=== PATIENT | female | born 1975 | race African-American/Black ===

== ENCOUNTER 2022-04-14 14:35 | Outpatient (CLI) | payer OTHER, SELFPAY ==
[2022-04-14 15:24] LABS: Albumin* 4.2 g/dL (3.3-5.0); Chloride* 108 mmol/L (96-114); Potassium* 4.2 mmol/L (3.6-5.1); Sodium* 138 mmol/L (135-149)
[2022-04-14 15:26] LABS: Carbon Dioxide* 24 mmol/L (20-32); Cholesterol* 146 mg/dL (90-199); Creatinine* 0.7 mg/dL (0.5-1.5); Estimated Glomerular Filt Rate 107 ml/min
[2022-04-14 15:27] LABS: Alanine Aminotransferase* 11 U/L (4-35); Alkaline Phosphatase* 72 U/L (40-150); Aspartate Amino Transferase* 16 U/L (12-35); Bilirubin Total* 0.8 mg/dL (0.1-1.5); Blood Urea Nitrogen* 9 mg/dL (5-24); Calcium* 9.2 mg/dL (8.4-10.6); Glucose* 91 mg/dL (60-115); Total Protein* 6.7 g/dL (6.0-8.3); Triglycerides* 84 mg/dL (40-149)
[2022-04-14 15:28] LABS: HDL Cholesterol* 62 mg/dL (>=50); LDL Cholesterol Calculated 67 mg/dL (<100)
== END 2022-04-14 14:36 | disposition home or self-care (01) ==
PROVIDERS: PCP Family Medicine; Visit Provider Family Medicine
DX: Z13.6 Encounter for screening for cardiovascular disorders (principal)
CPT/HCPCS: 80053; 80061

== ENCOUNTER 2022-05-16 07:30 | Outpatient (CLI) | payer OTHER, SELFPAY ==
--- OUTSIDE RECORDS SUMMARY | 2022-05-16 07:33 | XMS_ITS | Encounter Summary ---
:1975 Author Organization [facility] Address [address] [place] [address] Care Team Providers Name Role Phone None, Pcp Primary Care Provider Unavailable Encounter Details Date Type Department Care Team Description 12/18/2021 Travel Social History Tobacco Use Types Packs/Day Years Used Date Former Smoker Cigarettes 1 8 Quit: 12/14/19 Smokeless Tobacco: Former User Sex Assigned at Date Recorded Not on file COVID-19 Exposure Response Date Recorded In the last 10 days, have you been in contact with Yes 12/18/2021 11:21 AM CDT someone who was confirmed or suspected to have Coronavirus/COVID-19? documented as of this encounter Plan of Treatment Not on filedocumented as of this encounter Visit Diagnoses Not on filedocumented in this encounter Additional Health Concerns Infection Onset Date Last Indicated Resolved Time COVID-19 Rule Out 12/17/2021 12/17/2021 12/18/2021 6:5 7 AM CDT COVID-19 Rule Out 12/18/2021 12/18/2021 12/18/2021 11: 57 AM CDT COVID-19 Confirmed 12/18/2021 12/18/2021 03/18/2022 8: 17 PM CDT Influenza 12/18/2021 12/18/2021 12/28/2021 8:17 PM CDT documented as of this encounter Care Teams Director Veterinary Relationship Specialty Start Date End Date None, Pcp PCP - General [employer] 12/17/21 [address] [place] [id number] documented as of this encounter
--- OUTSIDE RECORDS SUMMARY | 2022-05-16 07:34 | XMS_ITS | Encounter Summary ---
:1975 Author Organization [facility] Address [address] [place] [address] Care Team Providers Name Role Phone None, Pcp Primary Care Provider Unavailable Reason for Visit Reason Comments Headache Shortness of Breath Encounter Details Date Type Department Care Team Description 12/18/2021 Emergency [facility] Edvin Ferrer (Primary Dx); Emergency Room MD Melisa COVID; [address] [place] [address] Breast cyst, right; [place] [address] [place] Cellulitis of right breast [phone] [id number] (Wo rk) Social History Tobacco Use Types Packs/Day Years Used Date Former Smoker Cigarettes 1 8 Quit: 12/14/19 22 Smokeless Tobacco: Former User Sex Assigned at Date Recorded Not on file COVID-19 Exposure Response Date Recorded In the last 10 days, have you been in contact with Yes 12/18/2021 11:21 AM CDT someone who was confirmed or suspected to have Coronavirus/COVID-19? documented as of this encounter Last Filed Vital Signs Vital Sign Reading Time Taken Comments Blood Pressure 140/88 12/18/2021 1:57 PM CDT Pulse 58 12/18/2021 1:57 PM CDT Temperature 36.8 ??C (98.2 ??F) 12/18/2021 1:57 PM CDT Respiratory Rate 16 12/18/2021 1:57 PM CDT Oxygen Saturation 100% 12/18/2021 1:57 PM CDT Inhaled Oxygen Concentration - - Weight 88.4 kg (194 lb 14.2 oz) 12/18/2021 11:26 AM CDT Height 176 cm (5' 9.29) 12/18/2021 11:26 AM CDT Body Mass Index 28.54 12/18/2021 11:26 AM CDT documented in this encounter Discharge Instructions Discharge InstructionsEdvin Ferrer MD - 12/18/2021 2:11 PM CDT You were evaluated in the emergency room for cough, runny nose, and upper respiratory symptoms. You do have COVID and influenza. You do have a infected breast cyst which was removed. Please take the antibiotics as prescribed. Stay quarantined at home. Any worsening symptoms, please return to emergencyroom. AttachmentsThe following attachments cannot be sent through Care Everywhere. Breast Cyst (Fijian)Mastitis [id number] (Fijian)10 Things You Can Do to Manage Your COVID-19 Symptoms at Home - [facility] (01/25/2021) (Fijian)Symptoms of COVID-19 - [facility] (09/03/2020) (Fijian)Influenza Adult Nque-me-Fmlr (Fijian) documented in this encounter Medications at Time of Discharge Medication Sig Dispensed Refills Start Date End Date cephalexin (Keflex) 500 Take 1 capsule (500 40 capsule 0 02/202212/28/2021 MG capsuleIndications: mg total) by mouth 4 Breast cyst, right (four) times a day for 10 days documented as of this encounter ED Notes Mac Monterroso RN - 12/18/2021 11:30 AM CDT Pt presents to the ED complaining of head pain, SOB, cough, sore throat, and chest tightness. These symptoms have been present since Thursday and have been progressively getting worse. She took a home COVID test yesterday which was positive. Edvin Ferrer MD - 12/18/2021 11:20 AM CDTAssociated Order(s): Incision and Drainage HPI Chief Complaint Patient presents with ??? Headache ??? Shortness of Breath 46-year-old female presents to the emergency room with a history of cough, headache, runny nose and chest congestion. She states that she has been having chest discomfort whenever she tries to take a deep breath or cough. She was having the symptoms for last 4 days. She did get tested herself yesterday and she was positive for COVID. Her son also has the same symptoms and one of her son's did get tested for COVID and he was positive to. She comes to the ER because she has not been able to eat or drink much since Thursday. No history of any asthma. No history of diabetes. The patient has not had anyother significant complaints. History provided by: Caregiver History limited by: Acuity of condition Headache Headache pattern: Some headache always there, and the pain level varies Duration: Less than 2 weeks Frequency: Headaches came more frequently then constant pain started Initial event: None Recent event: Illness and infection Providers seen: None Lifetime total: 2 to 4 Longest time without a headache: Headache has always been present Number of ER visits for headache: 4 Did ER treatment alleviate headache symptoms?: Yes Number of hospitalizations for headaches: 0 Time of day symptoms are worse: No specific time of day, upon waking up and evening Do headaches wake patient from sleep?: No Days of the week symptoms are worse: No specific day of the week Season symptoms are worse: No particular season Quality: Unable to describe Laterality: Unable to describe Location: Unable to describe Pain severity: 6 Escalation timing: Wakes up with severe pain Aggravating factors: Activity, changing position and concentrating Duration of aggravated symptoms: Just during a sneeze/cough/laugh Allodynia triggers: None Patient History Patient History No Known Allergies No past medical history on file. No past surgical history on file. No family history on file. Social History Tobacco Use ??? Smoking status: Former Smoker Packs/day: 1.00 Years: 8.00 Pack years: 8.00 Types: Cigarettes Quit date: 12/13/2021 Years since quittin.0 ??? Smokeless tobacco: Former User Substance Use Topics ??? Alcohol use: Not on file ??? Drug use: Never Review of Systems Review of Systems Constitutional: Negative for chills and fever. HENT: Negative for ear pain and sore throat. Eyes: Negative for pain and visual disturbance. Respiratory: Positive for cough and shortness of breath. Cardiovascular: Negative for chest pain and palpitations. Gastrointestinal: Negative for abdominal pain and vomiting. Genitourinary: Negative for dysuria and hematuria. Musculoskeletal: Negative for arthralgias and back pain. Skin: Negative for color change and rash. Neurological: Positive for headaches. All other systems reviewed and are negative. Physical Exam ED Triage Vitals [12/18/21 1126] Temp Heart Rate Resp BP (!) 35.8 ??C (96.4 ??F) 76 22 128/76 SpO2 Temp Source Heart Rate Source Patient Position 98 % Temporal Monitor Sitting BP Location FiO2 (%) Weight Right arm -- 88.4 kg (194 lb 14.2 oz) Body mass index is 28.54 kg/m??. Lyons body weight: 66.9 kg (147 lb 6.7 oz) Physical Exam Constitutional: General: She is not in acute distress. Appearance: She is well-developed. She is not diaphoretic. HENT: Head: Normocephalic and atraumatic. Nose: Nose normal. Eyes: General: No scleral icterus. Pupils: Pupils are equal, round, and reactive to light. Neck: Thyroid: No thyromegaly. Vascular: No JVD. Cardiovascular: Rate and Rhythm: Normal rate and regular rhythm. Heart sounds: Normal heart sounds. No murmur heard. No friction rub. No gallop. Pulmonary: Effort: Pulmonary effort is normal. No respiratory distress. Breath sounds: Normal breath sounds. No wheezing or rales. Chest: Chest wall: No tenderness. Abdominal: General: Bowel sounds are normal. There is no distension. Palpations: Abdomen is soft. There is no mass. Tenderness: There is no abdominal tenderness. There is no rebound. Musculoskeletal: General: Normal range of motion. Cervical back: Normal range of motion and neck supple. Lymphadenopathy: Cervical: No cervical adenopathy. Skin: General: Skin is warm and dry. Neurological: Mental Status: She is alert and oriented to person, place, and time. Deep Tendon Reflexes: Reflexes normal. Psychiatric: Mood and Affect: Mood normal. [place] Coma Scale Score: 15 Incision and Drainage Performed by: Edvin Ferrer MD Authorized by: Edvin Ferrer MD Consent: Consent obtained: Verbal Consent given by: Patient Risks, benefits, and alternatives were discussed: yes Risks discussed: Bleeding, incomplete drainage, pain, damage to other organs and infection Alternatives discussed: No treatment, delayed treatment and alternative treatment [place] protocol: Procedure explained and questions answered to patient or proxy's satisfaction: yes Relevant documents present and verified: yes Site/side marked: yes Immediately prior to procedure, a time out was called: yes Patient identity confirmed: Verbally with patient, arm band, provided demographic data and hospital-assigned identification number Location: Type: Cyst Size: 5x5 Location: Trunk Trunk location: R breast Pre-procedure details: Skin preparation: Chlorhexidine Anesthesia: Anesthesia method: Local infiltration Local anesthetic: Bupivacaine 0.5% w/o epi Procedure type: Complexity: Simple Procedure details: Ultrasound guidance: yes Needle aspiration: yes Needle size: 18 G Wound management: Irrigated with saline Drainage: Purulent Drainage amount: Moderate Wound treatment: Wound left open Packing materials: None Post-procedure details: Procedure completion: Tolerated No results found. Labs Reviewed CBC WITH AUTO DIFFERENTIAL - Abnormal Result Value WBC 6.7 RBC 4.29 Hemoglobin 13.1 Hematocrit 39.9 Platelets 223 MCV 93.0 MCH 30.5 MCHC 32.8 RDW 12.5 NRBC %, Automated 0 NRBC Absolute, Autmated 0.00 Neutrophils 59.0 Absolute Neutrophils 4.0 Lymphocytes % 22.0 Absolute Lymphocytes 1.5 Monocytes % 16.0 Monocytes Absolute 1.1 (*) Eosinophils 3.0 Absolute Eosinophils 0.2 Basophils 0.0 Absolute Basophils 0.0 Immature Leukocytes 0.0 Immature Leukocytes Absolute 0.00 COMPREHENSIVE METABOLIC PANEL - Abnormal Total Protein 7.5 Albumin, Serum 4.2 Total Bilirubin <0.7 AST 16 Alkaline Phosphatase 61 ALT (SGPT) 11 Sodium 137 Potassium 3.8 Chloride 106 CO2 21 (*) BUN 7 Creatinine 0.7 Glucose 102 (*) Calcium, Total,S 8.9 Fasting? No C-REACTIVE PROTEIN - Abnormal CRP 27.9 (*) FLU(A/B), DACOSTA ID NOW, PCR - Abnormal Flu Source Nasal Influenza A, PCR NEGATIVE Influenza B, PCR POSITIVE (*) Flu Interp see below COVID-19, DACOSTA ID NOW, PCR - Abnormal Covid Source Nasal Covid-19, ID Now PCR POSITIVE (*) WOUND CULTURE LACTATE, PLASMA Lactate 0.8 MORPHOLOGY Slide Review PERFORMED RBC Morphology See below PLT Morphology ADEQUATE Anisocytosis 1+ GLOMERULAR FILTRATION RATE GFR >60 GFR >60 REFLEXED MANUAL DIFF Manual Differential PERFORMED Total Counted 100 ED Course & MDM MDM Number of Diagnoses or Management Options Breast cyst, right Cellulitis of right breast COVID Influenza B Diagnosis management comments: 46-year-old female presents to the emergency room with a history of cough, headache, runny nose and chest congestion. She states that she has been having chest discomfortwhenever she tries to take a deep breath or cough. She was having the symptoms for last 4 days. She did get tested herself yesterday and she was positive for COVID. Her son also has the same symptoms and one of her son's did get tested for COVID and he was positive to. She comes to the ER because she has not been able to eat or drink much since Thursday. No history of any asthma. No history of diabetes. The patient has not had any other significant complaints. In the emergency room the patient did have a blood work, chest x-ray and nasal swab for influenza and COVID which were positive. The patient also mentioned that she has a painful cyst on the right side. He drained the cyst which appears little purulent. The surrounding skin appears to be mildly red. The nipple was not everted. This was sent for culture and sensitivity. Patient was given a dose of Keflex and she did get a prescription for Keflex. She states that she gets these breast cyst which can often get infected and she was discharged home in stable condition with recommendation that she follow-up with primary care physician. Amount and/or Complexity of Data Reviewed Clinical lab tests: ordered and reviewed Tests in the radiology section of CPT??: ordered and reviewed Obtain history from someone other than the patient: yes Review and summarize past medical records: yes Discuss the patient with other providers: yes Independent visualization of images, tracings, or specimens: yes Risk of Complications, Morbidity, and/or Mortality Presenting problems: high Diagnostic procedures: moderate Management options: high Patient Progress Patient progress: stable Follow Up No follow-up provider specified. Patient's Medications New Prescriptions CEPHALEXIN (KEFLEX) 500 MG CAPSULE Take 1 capsule (500 mg total) by mouth 4 (four) times a day for 10 days Previous Medications No medications on file Modified Medications No medications on file Discontinued Medications No medications on file Discharge Instructions Attached Instructions BREAST CYST (CU[place]) [[id number]] MASTITIS [id number] (CUBAN) [[id number]] 10 THINGS YOU CAN DO TO MANAGE YOUR COVID-19 SYMPTOMS AT HOME - [facility] (01/25/2021) (CU[place]AN) [[id number]] SYMPTOMS OF COVID-19 - [facility] (09/03/2020) (CU[place]) [[id number]] INFLUENZA ADULT JNTH-LY-MUUA (CUBAN) [[id number]] Discharge Instructions You were evaluated in the emergency room for cough, runny nose, and upper respiratory symptoms. You do have COVID and influenza. You do have a infected breast cyst which was removed. Please take the antibiotics as prescribed. Stay quarantined at home. Any worsening symptoms, please return to emergencyroom. ED COURSE and CLINICAL IMPRESSION ED Course as of 12/18/21 1414 ThuDec 18, 2021 1338 Influenza B, PCR(!): POSITIVE [GK] 1338 Covid-19, ID Now PCR(!): POSITIVE [GK] 1338 CRP(!): 27.9 [] 1407 Patient also mentioned that she has cystic swelling in the right breast for the last 2 weeks and it has been very painful. When I ultrasounded the area it appears like a breast abscess. This was drained with an 18-gauge needle. Sent for culture. [GK] ED Course User Index [] Edvin Ferrer MD Clinical Impressions as of 12/18/21 1414 Influenza B COVID Breast cyst, right Cellulitis of right breast Disposition: Discharge Edvin Ferrer MD 12/18/21 1414 documented in this encounter Plan of Treatment Not on filedocumented as of this encounter Procedures Procedure Name Priority Date/Time Associated Comments Diagnosis WOUND CULTURE STAT 12/18/2021 2:09 PM Results for this CDT procedure are i n the results section. XR CHEST 1 VIEW STAT 12/18/2021 1:33 PM Result s for this CDT procedure are i n the results section. REFLEXED MANUAL DIFF STAT 12/18/2021 12:00 Res ults for this PM CDT procedure are i n the results section. MORPHOLOGY STAT 12/18/2021 12:00 Results for this PM CDT procedure are i n the results section. GLOMERULAR FILTRATION STAT 12/18/2021 12:00 Re sults for this RATE PM CDT procedure are i n the results section. CBC WITH AUTO STAT 12/18/2021 12:00 Results fo r this DIFFERENTIAL PM CDT procedure are i n the results section. C-REACTIVE PROTEIN STAT 12/18/2021 12:00 Resul ts for this PM CDT procedure are i n the results section. LACTATE, PLASMA STAT 12/18/2021 12:00 Results for this PM CDT procedure are i n the results section. COMPREHENSIVE STAT 12/18/2021 12:00 Results fo r this METABOLIC PANEL PM CDT procedure ar e in the results section. FLU(A/B), DACOSTA ID STAT 12/18/2021 11:41 Resu lts for this NOW, PCR AM CDT procedure are i n the results section. COVID-19, DACOSTA ID STAT 12/18/2021 11:41 Resu lts for this NOW, PCR AM CDT procedure are i n the results section. HC INCISION DRAIN Routine 12/18/2021 11:20 Result s for this ABSCESS SIMPLE AM CDT procedure are in the results section. CA DRAIN SKIN ABSCESS Routine 12/18/2021 11:20 Re sults for this SIMPLE AM CDT procedure are i n the results section. documented in this encounter Results (ABNORMAL) Wound culture (12/18/2021 2:09 PM CDT) [facility] gist Method Time Signature Gram Stain Rare WBC'S. No 12/19/2021 [place] organisms seen. 1:07 PM CDT [facility] Wound Culture Escherichia coli 12/21/2021 [place] Growth in thio broth only 6:43 AM CDT [facility] Specimen Anatomical Collection Method Collection Time Receive d Time (Source) Location / / Volume Laterality Wound (Breast, 12/18/2021 2:09 PM 022 2:11 Right) CDT PM CDT Comment: Wound Narrative [facility] - 12/11 6:50 AM CDT Patient does not have an Amoxicillin or PCN allergy Organism Antibiotic Method Susceptibility Escherichia coli Ampicillin >16 mcg/mL: Res istant Escherichia coli Ampicillin/Sulbactam 16/8 mcg/m L: Intermediate Escherichia coli Cefazolin <=2 mcg/mL: Tonia ceptible Escherichia coli Ciprofloxacin <=0.25 mcg/mL: Susceptible Escherichia coli Gentamicin <=4 mcg/mL: Tonia ceptible Escherichia coli Levofloxacin <=0.5 mcg/mL: S usceptible Escherichia coli Piperacillin/Tazobactam <=16 mc g/mL: Susceptible Escherichia coli Trimeth/Sulfa <=2/38 mcg/mL: Susceptible Edvin Ferrer MD LAB MICROBIOLOGY - GENERAL O RDERABLES Performing Organization Address City/State/ZIP Code Phon e Number [facility] [address] [place] [address] X-ray chest 1 view portable (12/18/2021 1:33 PM CDT) Anatomical Region Laterality Modality Body Radiographic Imaging Specimen (Source) Anatomical Collection Method Collection Time Re ceived Time Location / / Volume Laterality 12/18/2021 1:33 PM CDT Impressions 12/18/2021 1:38 PM CDT IMPRESSION: No acute cardiopulmonary abnormality. Narrative 12/18/2021 1:38 PM CDT INDICATION: sob. cough COMPARISON: None FINDINGS: Heart size is normal. Lungs are clear. N o pneumothorax. No pleural effusion. ??No osseous abnormality. Procedure Note Danny Lindquist MD - 12/18/2021 INDICATION: sob. cough COMPARISON: None FINDINGS: Heart size is normal. Lungs are clear. N o pneumothorax. No pleural effusion. No osseous abnormality. IMPRESSION: No acute cardiopulmonary abnormality. Edvin Ferrer MD IMG XR PROCEDURES Glomerular filtration rate (GFR) (12/18/2021 12:00 PM CDT) athologist Signature GFR >60 12/18/2021 [facility] 12:29 PM CDT [facility] >60 12/18/2021 [facility] Bahraini GFR 12:29 PM CDT [facility] Comment: GFR calculated from serum creatinine v alue Chronic Kidney Disease less than 60 mL/m in/1.73 m2 Kidney Failure less than 15 mL/min/1.73 m2 IDMS-Traceable MDRD Study Equation used. Specimen Anatomical Collection Method Collection Time Receive d Time (Source) Location / / Volume Laterality 12/18/2021 12:00 12/18/2021 PM CDT 12:00 PM CDT Edvin Ferrer MD LAB BLOOD ORDERABLES Performing Organization Address City/[facility]/ZIP Code Phon e Number [facility] [address] [place] [address] Morphology (12/18/2021 12:00 PM CDT) [facility] Method Time Signature Slide Review PERFORMED 12/18/2021 [place] 12:32 PM [facility] RBC Morphology See below 12/18/2021 [place] 12:32 PM [facility] PLT Morphology ADEQUATE 12/18/2021 [place] 12:32 PM [facility] Anisocytosis 1+ 12/18/2021 [place] 12:32 PM [facility] Specimen Anatomical Collection Method Collection Time Receive d Time (Source) Location / / Volume Laterality 12/18/2021 12:00 12/18/2021 PM CDT 12:06 PM CDT Edvin Ferrer MD LAB BODY FLUIDS AND STOOLS O RDERABLES Performing Organization Address City/[facility]/ZIP Code Phon e Number [facility] [address] [place] [address] Reflexed Manual Diff (12/18/2021 12:00 PM CDT) [facility] Signature Manual PERFORMED 12/18/2021 [place] Differential 12:32 PM [facility] Total Counted 100 12/18/2021 [place] 12:31 PM [facility] Specimen Anatomical Collection Method Collection Time Receive d Time (Source) Location / / Volume Laterality 12/18/2021 12:00 12/18/2021 PM CDT 12:06 PM CDT Edvin Ferrer MD LAB BLOOD ORDERABLES Performing Organization Address City/[facility]/ZIP Code Phon e Number [facility] [address] [place] [address] Lactate, plasma (12/18/2021 12:00 PM CDT) athologist Signature Lactate 0.8 0.5 - 2.0 12/18/2021 [facility] mmol/L 12:23 PM [facility] Specimen Anatomical Collection Method Collection Time Receive d Time (Source) Location / / Volume Laterality Blood (Blood, 12/18/2021 12:00 12/18/2021 Venous) PM CDT 12:06 PM CDT Edvin Ferrer MD LAB BLOOD ORDERABLES Performing Organization Address City/[facility] Code Phon e Number [facility] [address] [place] [phone] (ABNORMAL) C-reactive protein (12/18/2021 12:00 PM CDT) P athologist Signature CRP 27.9 (H) 0.0 - 4.9 12/18/2021 [facility] mg/L 12:29 PM [facility] Specimen Anatomical Collection Method Collection Time Receive d Time (Source) Location / / Volume Laterality Blood (Blood, 12/18/2021 12:00 12/18/2021 Venous) PM CDT 12:06 PM CDT Edvin Ferrer MD LAB BLOOD ORDERABLES Performing Organization Address [facility] Phon e Number [facility] [address] [place] [phone] (ABNORMAL) Comprehensive metabolic panel (12/18/2021 12:00 PM CDT) Patholo gist Method Time Signature Total Protein 7.5 6.3 - 8.2 12/18/2021 [facility] g/dL 12:29 PM [facility] Albumin, Serum 4.2 3.5 - 5.0 12/18/2021 [facility] g/dL 12:29 PM [facility] Total Bilirubin <0.7 0.1 - 1.0 12/18/2021 [facility] mg/dL 12:29 PM [facility] AST 16 8 - 43 U/L 12/18/2021 [facility] 12:29 PM [facility] Alkaline 61 38 - 128 12/18/2021 [facility] Phosphatase U/L 12:29 PM [facility] ALT (SGPT) 11 0 - 34 U/L 12/18/2021 [facility] 12:29 PM [facility] Sodium 137 135 - 145 12/18/2021 [facility] mEq/L 12:29 PM [facility] Potassium 3.8 3.5 - 5.1 12/18/2021 [facility] mEq/L 12:29 PM [facility] Chloride 106 98 - 107 12/18/2021 [facility] mEq/L 12:29 PM [facility] CO2 21 (L) 22 - 29 12/18/2021 [facility] mmol/L 12:29 PM [facility] BUN 7 5 - 25 12/18/2021 [facility] mg/dL 12:29 PM [facility] Creatinine 0.7 0.4 - 1.2 12/18/2021 [facility] mg/dL 12:29 PM [facility] Glucose 102 (H) 70 - 100 12/18/2021 [facility] mg/dL 12:29 PM [facility] Calcium, Total,S 8.9 8.4 - 10.2 12/18/2021 [facility] mg/dL 12:29 PM [facility] Fasting? No 12/18/2021 [facility] 12:08 PM [facility] Specimen Anatomical Collection Method Collection Time Receive d Time (Source) Location / / Volume Laterality Blood (Blood, 12/18/2021 12:00 12/18/2021 Venous) PM CDT 12:06 PM CDT Edvin Ferrer MD LAB BLOOD ORDERABLES Performing Organization Address City/State/ZIP Code Phon e Number [facility] [address] [place], [place] [phone] (ABNORMAL) CBC auto differential (12/18/2021 12:00 PM CDT) P athologist Signature WBC 6.7 3.5 - 10.5 12/18/2021 [facility] K/uL 12:32 PM T [facility] RBC 4.29 3.90 - 12/18/2021 [facility] 5.00 M/uL 12:32 PM CDT [facility] Hemoglobin 13.1 12.0 - 12/18/2021 [facility] 15.5 g/dL 12:32 PM T [facility] Hematocrit 39.9 35.0 - 12/18/2021 [facility] 44.0 % 12:32 PM CDT [facility] Platelets 223 150 - 450 12/18/2021 [facility] K/uL 12:32 PM CDT [facility] MCV 93.0 81.6 - 12/18/2021 [facility] 98.3 fL 12:32 PM CDT [facility] MCH 30.5 26.0 - 12/18/2021 [facility] 32.0 pg 12:32 PM CDT [facility] MCHC 32.8 32.0 - 12/18/2021 [facility] 36.0 g/dL 12:32 PM CDT [facility] RDW 12.5 11.9 - 12/18/2021 [facility] 15.5 % 12:32 PM CDT [facility] NRBC %, 0 % 12/18/2021 [facility] Automated 12:32 PM CDT [facility] Comment: . NRBC Absolute, Autmated 0.00 12/18/2021 12:32 PM CDT [facility] Comment: 0-4 Days Ref Range ?? 0.01 -0.02 K/uL >=5 Days Ref Range ?? 0.00 K/uL Neutrophils 59.0 % 12/18/2021 12:31 PM [facility] Absolute Neutrophils 4.0 1.7 - 7.0 12/18/2021 12:32 PM [facility] Lymphocytes % 22.0 % 12/18/2021 12:31 PM [facility] [facility] Absolute Lymphocytes 1.5 0.9 - 2.9 12/18/2021 12:32 PM [facility] Monocytes % 16.0 % 12/18/2021 12:31 [facility] Monocytes Absolute 1.1 (H) 0.3 - 0.9 12/18/2021 12:32 PM [facility]/uL CDT [facility] Eosinophils 3.0 % 12/18/2021 12:31 PM [facility] Absolute Eosinophils 0.2 0.1 - 0.5 12/18/2021 12:32 PM [facility]/ CDT [facility]ENTER [facility] Basophils 0.0 % 12/18/2021 12:31 PM [facility] D[facility] T [facility] Absolute Basophils 0.0 0.0 - 0.1 12/18/2021 12:32 PM O [facility] K/uL CDT CENTER [facility] Immature Leukocytes 0.0 % 12/18/2021 12:31 PM [facility] Immature Leukocytes 0.00 0.00 - 0.04 12/18/2021 12:32 P [facility] Absolute K/uL [facility] Specimen Anatomical Collection Method Collection Time Receive d Time (Source) Location / / Volume Laterality Blood (Blood, 12/18/2021 12:00 12/18/2021 Venous) PM CDT 12:06 PM CDT Edvin Ferrer MD LAB BLOOD ORDERABLES Performing Organization Address City/[facility]/ZIP Code Phon e Number [facility] [address] [place] [address] (ABNORMAL) Covid-19, [place] ID Now, PCR symptomatic (12/18/2021 11:41 AM CDT) [facility] CleanMyCRM Method Time Signature Covid Source Nasal 12/18/2021 [place] 11:57 AM [facility] Covid-19, ID POSITIVE (A) Negative 12/18/2021 [facility] PCR 11:57 AM [facility] Comment: REPORTABLE DISEASE Agent. Must be report ed to MD within 1 working day. ??(Department rece iving report is responsible for filling out [facility]-Disease Report Card). Positive results do not rule out bacteri al infection or co-infection with other viruses. Testing was performed using the [place] I D NOW Covid-19 assay. Fact sheets for this Emergency Use Autho rization (EUA) assay can be found at the following link s: ??[place] NOW Fact Sheet for Health Care Providers (fda.gov) ??[place] NOW Fact Sheet for Patients (f da.gov) Specimen Anatomical Collection Method Collection Time Receive d Time (Source) Location / / Volume Laterality Swab (Nasal) 12/18/2021 11:41 12/18/2021 AM CDT 11:45 AM CDT Edvin Ferrer MD LAB MOLECULAR DIAGNOSTICS OR DERABLES Performing Organization Address City/[facility]/ZIP Code Phon e Number [facility] [address] [place] [address] (ABNORMAL) Flu, [place] ID Now, PCR (12/18/2021 11:41 AM CDT) [facility] Method Time Signature Flu Source Nasal 12/18/2021 [place] 11:57 AM [facility] Influenza A, NEGATIVE 12/18/2021 [place] PCR 12:08 PM [facility] Influenza B, POSITIVE (A) Negative 12/18/2021 [place] PCR 12:08 PM [facility] Flu Interp see below 12/18/2021 [place] 12:08 PM [facility] Comment: Flu B Viral RNA Detected; Flu A Viral RN A Not Detected. This result does not rule out co-infecti ons with other pathogens or identify specific influenza B virus lineage. Testing was performed using the [place] I D NOW A & B 2 Assay. Specimen Anatomical Collection Method Collection Time Receive d Time (Source) Location / / Volume Laterality Swab 12/18/2021 11:41 12/18/2021 AM CDT 11:45 AM CDT Edvin Ferrer MD LAB MOLECULAR DIAGNOSTICS OR DERABLES Performing Organization Address City/State/ZIP Code Phon e Number [facility] [address] [place] [address] [place] DRAIN SKIN ABSCESS SIMPLE, HC INCISION DRAIN ABSCESS SIMPLE (12/18/2021 11:20 AM CDT) Narrative Edvin Ferrer MD - 12/18/2021 11:20 AM CDT Edvin Ferrer MD ? 12/18/2021 ??2:14 PM Incision and Drainage Performed by: Edvin Ferrer MD Authorized by: Edvin Ferrer MD Consent: ??Consent obtained: ??Verbal ??Consent given by: ??Patient ??Risks, benefits, and alternatives wer e discussed: yes ?Risks discussed: ??Bleeding, incomple te drainage, pain, damage to other organs and infection ??Alternatives discussed: ??No treatmen t, delayed treatment and alternative treatment [place] protocol: ??Procedure explained and questions ans wered to patient or proxy's satisfaction: yes ?Relevant documents present and verifi ed: yes ?Site/side marked: yes ?Immediately prior to procedure, a stacy e out was called: yes ?Patient identity confirmed: ??Verball y with patient, arm band, provided demographic data and hospital-assigned i dentification number Location: ??Type: ??Cyst ??Size: ??5x5 ??Location: ??Trunk ??Trunk location: ??R breast Pre-procedure details: ??Skin preparation: ??Chlorhexidine Anesthesia: ??Anesthesia method: ??Local infiltrati on ??Local anesthetic: ??Bupivacaine 0.5% w/o epi Procedure type: ??Complexity: ??Simple Procedure details: ??Ultrasound guidance: yes ?Needle aspiration: yes ?Needle size: ??18 G ??Wound management: ??Irrigated with sa line ??Drainage: ??Purulent ??Drainage amount: ??Moderate ??Wound treatment: ??Wound left open ??Packing materials: ??None Post-procedure details: ??Procedure completion: ??Tolerated Edvin Ferrer MD IN CLINIC/BEDSIDE ORDERABLES documented in this encounter Visit Diagnoses Diagnosis Influenza B - Primary Influenza with other respiratory manifes tations COVID Breast cyst, right Cellulitis of right breast documented in this encounter Administered Medications Inactive Administered Medications - up to 3 most recent administrations Medication Order MAR Action Action Date Dose Rate Site bupivacaine PF (MARCAINE) 0.5 % Given 12/18/2021 1:54 PM CDT 25 mg injection 25 mg 25 mg (5 mL), Injection, Once, On Thu12/18/21 at 1355, For 1 dose ketorolac (TORADOL) injection 15 mg Given 12/18/2021 12:06 PM CDT 15 mg 15 mg, Intravenous, Once, On Thu12/18/21 at 1140, For 1 dose ondansetron (ZOFRAN) injection 4 mg Given 12/18/2021 12:08 PM CDT 4 mg 4 mg, Intravenous, Once, On Thu12/18/21 at 1140, For 1 dose sodium chloride 0.9 % infusion New Bag 12/18/2021 12:08 PM CDT 999 mL/hr 999 mL/hr 999 mL/hr, Intravenous, Continuous, Starting on Thu12/18/21 at 1140, For 5 days, 1L then TKO documented in this encounter Active and Recently Administered Medications Times are shown in CDT. Scheduled Medication Order 12/16/2021 12/17/2021 12/18/2021 bupivacaine PF (MARCAINE) 0.5 % injection 25 mg (COMPLETED) 1354 (Given - Provider: Shawna Morton RN) 25 mg (5 mL), Injection, Once, On Thu12/18/21 at 1355, For 1 dose ketorolac (TORADOL) injection 15 mg (COMPLETED) 1206 (Given - Provider: Mac Monterroso RN) 15 mg, Intravenous, Once, On Thu12/18/21 at 1140, For 1 dose ondansetron (ZOFRAN) injection 4 mg (COMPLETED) 1208 (Given - Provider: Mac Monterroso RN) 4 mg, Intravenous, Once, On Thu12/18/21 at 1140, For 1 dose Continuous Medication Order 12/16/2021 12/17/2021 12/18/2021 sodium chloride 0.9 % infusion 1 208 (New Bag - Provider: Mac Monterroso RN)1305 (Stopped - Provider: Sp Rodriguez RN) 999 mL/hr, Intravenous, Continuous, Star ting on Thu12/18/21 at 1140, For 5 days, 1L then TKO documented in this encounter Additional Health Concerns Infection Onset Date Last Indicated Resolved Time COVID-19 Rule Out 12/18/2021 12/18/2021 12/18/2021 11: 57 AM CDT COVID-19 Confirmed 12/18/2021 12/18/2021 03/18/2022 8: 17 PM CDT Influenza 12/18/2021 12/18/2021 12/28/2021 8:17 PM CDT documented as of this encounter Care Teams Shim Plug Cutter Relationship Specialty Start Date End Date None, Pcp PCP - General Sr. Payroll Processor 12/17/[address] [place] [phone] documented as of this encounter
--- OUTSIDE RECORDS SUMMARY | 2022-05-16 07:34 | XMS_ITS | Encounter Summary ---
:1975 Author Organization [facility] Address [address] [place] [address] Care Team Providers Name Role Phone None, Pcp Primary Care Provider Unavailable Reason for Visit Reason Onset Date Comments Covid Triage 12/17/2021 Encounter Details Date Type Department Care Team Description 12/17/2021 Telephone [facility] Meagan Robledo, Covid Triage [address] [facility] ALYSSA, C SPINE NURSE [address] [place] [address] [place] [address] [phone] (Wo rk) Social History Tobacco Use Types Packs/Day Years Used Date Never Assessed Sex Assigned at Date Recorded Not on file documented as of this encounter Progress Notes Hawa Causey RN - 12/17/2021 9:59 AM CDT 12/17/21 0900 COVID Algorithm Patient has the following symptoms: Muscle pain;Chills;Fever;Cough;Nasal congestion;Headache;Sore throat Date of onset of symptoms 12/14/21 Acuity evaluation - patient has the following symptoms: None Patient belongs to a high risk group: None Patient has the following special indications Patient/Parent/Guardian requests Patient has close contact with confirmed COVID case: Yes Has the patient tested positive for COVID-19 in past 90 days? No - send for COVID SPINE NURSE swab documented in this encounter Plan of Treatment Not on filedocumented as of this encounter Visit Diagnoses Diagnosis Encounter for screening laboratory testi ng for COVID-19 virus - Primary documented in this encounter Care Teams Back Seam Stitcher Relationship Specialty Start Date End Date None, Pcp PCP - General Director Of Speech Pathology 12/17/21 [address] [place] [phone] documented as of this encounter
--- NOTE | 2022-05-16 08:29 | W.ANESCHARGE ---
Anesthesia Charges Start Date/Time Anesthesia Start Date: 05/16/22 Anesthesia Start Time: 07:54 Stop Date/Time Anesthesia Stop Date: 05/16/22 Anesthesia Stop Time: 08:25 Summary Emergency: No
== END 2022-05-16 07:31 | disposition home or self-care (01) ==
PROVIDERS: PCP Family Medicine; Visit Provider Internal Medicine
DX: Z12.11 Encounter for screening for malignant neoplasm of colon (principal); K63.5 Polyp of colon; K64.8 Other hemorrhoids
CPT/HCPCS: 00811; 45380; 88305; J2704

== ENCOUNTER 2022-08-22 08:42 | Outpatient (CLI) | payer OTHER, SELFPAY ==
[2022-08-22 10:35] LABS: TSH With Reflex to FT4* 0.823 uIU/mL (0.270-4.200)
== END 2022-08-22 08:43 | disposition home or self-care (01) ==
LOC: NFLDREF 08:43
PROVIDERS: PCP Family Medicine; Visit Provider Family Medicine
DX: E89.0 Postprocedural hypothyroidism (principal)
CPT/HCPCS: 84443

== ENCOUNTER 2022-08-22 09:30 | Outpatient (CLI) | payer OTHER, SELFPAY ==
--- NOTE | 2022-08-22 09:45 | CRLHL7_ITS ---
For Patients: As a result of the Century Cures Act, medical imaging exams and procedure reports are released immediately into your electronic medical record. You may view this report before your referring provider. If you have questions, please contact your health care provider. BILATERAL DIGITAL SCREENING MAMMOGRAM WITH TOMOSYNTHESIS AND COMPUTER-AIDED DETECTION CLINICAL HISTORY: Routine screening exam. COMPARISON: 09/28/2018. TECHNIQUE: Digital mammogram in CC and MLO projections including computer-aided detection (CAD). Tomosynthesis utilized. BREAST COMPOSITION: The breasts are heterogeneously dense, which may obscure small alec. FINDINGS: RIGHT Breast: No suspicious findings. LEFT Breast: There are two large probable cystic areas within the LEFT breast, one beneath the nipple and one laterally. IMPRESSION: LEFT breast asymmetry/masses. RECOMMENDATIONS: LEFT breast ultrasound recommended. BI-RADS Category 0: Incomplete: Need Additional Imaging Evaluation and/or Prior Mammograms for Comparison. [facility] will contact the patient for follow-up. A lay language report of this examination will be provided to the patient. Dictated by Willis Beltran MD @ 08/22/2022 11:52:13 AM /Dictated by: Willis Beltran MD @ 08/22/2022 11:52:00 AM (Electronically Signed)
== END 2022-08-22 09:31 | disposition home or self-care (01) ==
LOC: MAMMO 09:30
PROVIDERS: PCP Family Medicine; Visit Provider Family Medicine
DX: Z12.31 Encounter for screening mammogram for malignant neoplasm of breast (principal); N63.20 Unspecified lump in the left breast, unspecified quadrant
CPT/HCPCS: 77063; 77067

== ENCOUNTER 2022-08-27 10:16 | Outpatient (CLI) | payer OTHER, SELFPAY ==
--- NOTE | 2022-08-27 10:15 | CRLHL7_ITS ---
For Patients: As a result of the Century Cures Act, medical imaging exams and procedure reports are released immediately into your electronic medical record. You may view this report before your referring provider. If you have questions, please contact your health care provider. ULTRASOUND-GUIDED CYST ASPIRATION BILATERAL CLINICAL HISTORY: BILATERAL PAINFUL CYSTS COMPARISON STUDIES: Mammogram 08/22/2022 TECHNIQUE: Real-time ultrasound with image documentation was used for targeting the breast lesions. Cyst aspiration performed with 18 gauge needles. CONSENT and TIME OUT: The procedure, risks, and alternatives were explained to the patient and a consent was signed. [place] Protocol was followed including pre-procedure verification that relevant information/documentation was available, reviewed and properly matched to the patient; consent accurate and complete; and equipment and supplies available. Time Out was conducted just prior to starting procedure to verify the four required elements: patient identity, correct side/site marked (if applicable), procedure, relevant images/results properly labeled and displayed (if applicable). PROCEDURE: The patient was positioned supine on the ultrasound table. The breasts were prepped with ChloraPrep. 8 cc of 1 percent lidocaine used for local anesthesia regarding all lesions. 3 cc of inflamed fluid removed from the right breast cyst located at 9 o`clock 2 cm from the nipple and measuring 1 cm. 18 cc of clear fluid removed from the large cyst left breast 2 o`clock 7 cm from the nipple. 16 cc of clear fluid removed from the cyst left breast 6 o`clock 1 cm from the nipple. Pressure was held on the site until all bleeding subsided. Post-care instructions were reviewed with the patient, and a written copy was given to her. IMPRESSION: Ultrasound-guided bilateral cyst aspirations, 2 on the left and 1 on the right. ACR not applicable Dictated by Willis Beltran MD @ 08/27/2022 12:58:23 PM (Electronically Signed)
--- NOTE | 2022-08-27 10:30 | US_ITS ---
Patient: VINCENT RUSHING Facility:?[facility] RIS Patient ID:?[id number] Site Patient ID:?[id number]. Site :?1975 Study:?US-Breast Bilateral DR. BULLARD TO READ-08/27/2022 12:16:55 PM Ordering Physician:?George Watt Final Report: ULTRASOUND-GUIDED CYST ASPIRATION BILATERAL CLINICAL HISTORY: BILATERAL PAINFUL CYSTS COMPARISON STUDIES: Mammogram 08/22/2022 TECHNIQUE: Real-time ultrasound with image documentation was used for targeting the breast lesions. Cyst aspiration performed with 18 gauge needles. CONSENT and TIME OUT: The procedure, risks, and alternatives were explained to the patient and a consent was signed. [place] Protocol was followed including pre-procedure verification that relevant information/documentation was available, reviewed and properly matched to the patient; consent accurate and complete; and equipment and supplies available. Time Out was conducted just prior to starting procedure to verify the four required elements: patient identity, correct side/site marked (if applicable), procedure, relevant images/results properly labeled and displayed (if applicable). PROCEDURE: The patient was positioned supine on the ultrasound table. The breasts were prepped with ChloraPrep. 8 cc of 1 percent lidocaine used for local anesthesia regarding all lesions. 3 cc of inflamed fluid removed from the right breast cyst located at 9 o`clock 2 cm from the nipple and measuring 1 cm. 18 cc of clear fluid removed from the large cyst left breast 2 o`clock 7 cm from the nipple. 16 cc of clear fluid removed from the cyst left breast 6 o`clock 1 cm from the nipple. Pressure was held on the site until all bleeding subsided. Post-care instructions were reviewed with the patient, and a written copy was given to her. IMPRESSION: Ultrasound-guided bilateral cyst aspirations, 2 on the left and 1 on the right. ACR not applicable Dictated by Willis Bullard MD @ 08/27/2022 12:58:23 PM Signed by:?Willis Bullard MD @08/27/2022 1:03:52 PM (Electronic Signature)
== END 2022-08-27 10:17 | disposition home or self-care (01) ==
LOC: US 10:16
PROVIDERS: PCP Family Medicine; Visit Provider Family Medicine
DX: N60.01 Solitary cyst of right breast (principal); N60.02 Solitary cyst of left breast
CPT/HCPCS: 19000; 76942